=== PATIENT | male | born 1960 | race Caucasian/White ===

== ENCOUNTER 2021-10-03 13:51 | Outpatient (CLI) | payer MEDICAID ==
[~2021-10-03 13:51] MED LIST: GABA300C PO; HYDR-4383 PO
[2021-10-03 14:37] LABS: ABG BASE EXCESS 0.3 mmol/L (-2.0-2.0); ABG HCO3 23.8 mmol/L (22.0-26.0); ABG OXYGEN SATURATION 95.4 % (94-97); ABG PCO2 (T) 35.3 mmHg (35.0-48.0); ALLEN'S TEST POSITIVE; FCOHb 1.2 % (0.0-3.9); FMetHb 0.2 % (0.0-1.5); FO2Hb 94.1 % (94-97); TOTAL HEMOGLOBIN 15.4 G/dl (14.0-18.0)
== END 2021-10-03 23:59 | disposition home or self-care (01) ==
LOC: RT 13:51
PROVIDERS: ATTEND Internal Medicine Cardiovascular Disease
DX: J45.991 Cough variant asthma (principal); J45.998 Other asthma; Z79.899 Other long term (current) drug therapy; Z94.4 Liver transplant status; Z90.81 Acquired absence of spleen; Z87.891 Personal history of nicotine dependence
CPT/HCPCS: 36600; 82803; 85018; 94010; 94727; 94729

== ENCOUNTER 2021-10-22 08:58 | Day surgery (SDC) | payer MEDICAID ==
[2021-10-20 12:43] LABS: APTT 30 SECONDS (22-32)
[2021-10-20 12:46] LABS: BASOPHILS # (AUTO) 0.1 X10'3 (0-0.2); BASOPHILS % (AUTO) 0.8 % (0-1); EOSINOPHILS # (AUTO) 0.1 X10'3 (0-0.9); EOSINOPHILS % (AUTO) 1.7 % (0-6); HEMATOCRIT 42.3 % (42.0-52.0); HEMOGLOBIN 14.2 g/dl (14.0-17.9); LYMPHOCYTES % (AUTO) 35.4 % (21-51); MEAN CORPUSCULAR HEMOGLOBIN 28.3 PG (27.0-31.0); MEAN CORPUSCULAR HGB CONC 33.6 g/dL (33.0-36.5); MEAN CORPUSCULAR VOLUME 84.3 FL (78-98); MEAN PLATELET VOLUME 8.6 FL (7.4-10.4); MONOCYTES # (AUTO) 0.9 X10'3 (0-0.9); MONOCYTES % (AUTO) 10.4 % (2-12); NEUTROPHILS # (AUTO) 4.4 X10'3 (1.8-7.7); NEUTROPHILS % (AUTO) 51.7 % (42-75); PLATELET COUNT 282 X10'3 (140-440); RED BLOOD COUNT 5.02 X10'6 (4.70-6.10); WHITE BLOOD COUNT 8.4 X10'3 (4.5-11.0)
[2021-10-20 12:53] LABS: ALANINE AMINOTRANSFERASE 39 U/L (12-78); ALBUMIN 3.5 G/DL (3.4-5.0); ALBUMIN/GLOBULIN RATIO 0.9 (1.1-1.5); ALKALINE PHOSPHATASE 86 IU/L (46-116); ANION GAP 8 (8-16); ASPARTATE AMINO TRANSFERASE 18 U/L (10-37); BILIRUBIN,TOTAL 0.5 MG/DL (0.1-1.0); BLOOD UREA NITROGEN 18 MG/DL (7-18); BUN/CREATININE RATIO 14.9 (5.4-32.0); CALCIUM 8.7 MG/DL (8.5-10.1); CHLORIDE 105 MMOL/L (99-107); CREATININE 1.21 MG/DL (0.60-1.10); GLUCOSE 124 MG/DL (70-104); POTASSIUM 4.2 MMOL/L (3.5-5.1); SODIUM 138 MMOL/L (135-145); TOTAL CARBON DIOXIDE 25.3 MMOL/L (24-32); TOTAL PROTEIN 7.4 G/DL (6.4-8.2); eGFR 61 ML/MIN
[2021-10-22] VITALS (11 sets, daily range): BP systolic 118–150; BP diastolic 73–97
[~2021-10-22] VITALS: Ht 180.3 cm; Wt 102.9 kg
[2021-10-22] MEDS ORDERED: LORazepam 0.5 MG tablet PO PRN (09:20)
[2021-10-22] MEDS ORDERED: normal saline 1,000 ML IV SCH (09:20)
[2021-10-22] MEDS ORDERED: diphenhydrAMINE 25mg capsule PO PRN (09:20)
[2021-10-22] MEDS ORDERED: nitroGLYCERIN 0.4mg SUBLingual tab SL PRN (09:20)
[2021-10-22 10:09] LABS: CREATINE KINASE 69 U/L (39-308)
[2021-10-22] MEDS ORDERED: TACR0.5C3 PO (10:09)
[2021-10-22] MEDS ORDERED: MYCO500V3 (10:09)
[2021-10-22] MEDS ORDERED: SIRO1TAB6 PO (10:13)
[2021-10-22] MEDS ORDERED: LISI5TAB22 PO (10:13)
[2021-10-22] MEDS ORDERED: METO25TA6 PO (10:13)
[2021-10-22] MEDS ORDERED: TACR1CAP2 PO (10:13)
[2021-10-22] MEDS ORDERED: VITAMIN D PO (10:21)
[2021-10-22] MEDS ORDERED: FISH OIL PO (10:21)
[2021-10-22] MEDS ORDERED: MAGN200T8 PO (10:21)
[2021-10-22] MEDS ORDERED: ASPI-1071 PO (10:27)
[2021-10-22] MEDS ORDERED: MULT-1142 (10:27)
[2021-10-22] MEDS ORDERED: midazolam 1 mg/ML 2ml injection ONE ×2 (12:00→12:40)
[2021-10-22] MEDS ORDERED: LIDOcaine 1% W/epiNEPHrine 1:100,000 20ml vial ONE (12:00)
[2021-10-22] MEDS ORDERED: fentaNYL/PF 50MCG/1 ML 2ML syringe ONE (12:00)
[2021-10-22] MEDS ORDERED: iohexol 350MG/ML 100ml bottle IV ONE (12:01)
[2021-10-22] MEDS ORDERED: proCHLORperazine 10 MG/2 ml inj ONE (12:21)
[2021-10-22] MEDS ORDERED: ondansetron/PF 4mg/2ml inj IV PRN (13:55)
[2021-10-22] MEDS ORDERED: normal saline 1000ml 1,000 ML IV SCH (13:55)
[2021-10-22] MEDS ORDERED: OXAZEpam 15mg capsule PO PRN (13:55)
== END 2021-10-22 18:55 | disposition home or self-care (01) ==
LOC: SSTAY O 08:58
PROVIDERS: ATTEND Internal Medicine Cardiovascular Disease
DX: R94.39 Abnormal result of other cardiovascular function study (principal); I25.10 Atherosclerotic heart disease of native coronary artery without angina pectoris; E78.5 Hyperlipidemia, unspecified; Z87.891 Personal history of nicotine dependence; Z79.899 Other long term (current) drug therapy; Z79.01 Long term (current) use of anticoagulants; Z98.890 Other specified postprocedural states
CPT/HCPCS: 36415; 71046; 80053; 82550; 83880; 85025; 85610; 85730; 93005; 93460; 99152; 99153; C1751; C1760; C1769; J0780; J1644; J2250; J3010; J3490; J7030; Q0163; Q9967; A4620; A6258